=== PATIENT | female | born 1995 | race African-American/Black ===

== ENCOUNTER → 2024-09-29 08:41 | Outpatient (BNVA) | payer OTHER, SELFPAY | PROVIDERS: PCP Family Medicine; Visit Provider Physician Assistant Medical | DX: S90.31XA Contusion of right foot, initial encounter (principal); W22.8XXA Striking against or struck by other objects, initial encounter; Y93.F2 Activity, caregiving, lifting | CPT/HCPCS: 73630; 99203 ==